=== PATIENT | male | born 1990 | race Caucasian/White ===

== ENCOUNTER 2017-02-15 14:38 | Emergency (ER) | payer OTHER ==
--- NOTE | 2017-02-15 14:44 | ED.PDOC ---
History of Present Illness - General Chief Complaint: Lower Extremity Injury Stated Complaint: left ankle pain Time Seen by Provider: 02/15/17 14:43 Source: patient Exam Limitations: no limitations - History of Present Illness Initial Comments: Parminder Ashby 26 y/o male stated he slipped and fell on a hole this early am twisting left ankle hearing a pop.Had sharp pain on weight bearing left foot after incident.No other related injuries Occurred: this morning Pain - Lower Extremity: moderate: Left Ankle Method of Injury: fell - on a hole, twisted Improving Factors: nothing, rest Worsening Factors: movement Allergies/Adverse Reactions: Allergies NO KNOWN ALLERGY Allergy (Verified 02/15/17 14:57) Home Medications: Ambulatory Orders Naproxen [Naprosyn] 500 mg PO BID #20 tab 02/15/17 Trolamine Salicylate [Aspercreme] 10 % EX TID #1 lot 02/15/17 Review of Systems - Review of Systems Constitutional: States: no symptoms reported EENTM: States: no symptoms reported Respiratory: States: no symptoms reported Cardiology: States: no symptoms reported Gastrointestinal/Abdominal: States: no symptoms reported Genitourinary: States: no symptoms reported Musculoskeletal: States: see HPI Skin: States: no symptoms reported Neurological: States: no symptoms reported Past Medical History (General) - Patient Medical History Hx Seizures: No Hx Stroke: No Hx Dementia: No Hx Asthma: No Hx of COPD: No Hx Cardiac Disorders: No Hx Congestive Heart Failure: No Hx Pacemaker: No Hx Hypertension: No Hx Thyroid Disease: No Hx Diabetes: No Hx Gastroesophageal Reflux: No Hx Renal Disease: No Hx of HIV: No Surgical History: no surgical history - Vaccination History Hx Influenza Vaccination: Yes - Social History Hx Tobacco Use: Yes Hx Alcohol Use: No Hx Substance Use: No Family Medical History - Family History Father Family History: Unknown Living Status: Unknown Physical Exam - Physical Exam General Appearance: Alert, Comfortable, No apparent distress Eyes, Ears, Nose, Throat: PERRL/EOMI, normal ENT inspection Neck: non-tender, full range of motion, supple Cardiovascular/Respiratory: regular rate, rhythm, no M/R/G, normal peripheral pulses, no JVD Gastrointestinal/Abdominal: non-tender, no organomegaly Back: normal inspection, no CVA tenderness, no vertebral tenderness Thigh/Hip: normal inspection, non-tender Leg: normal inspection, non-tender Knee: normal inspection, non-tender Ankle: bone tenderness - left ankle, limited ROM - left ankle pain /swelling, pain - left ankle, soft tissue tenderness - left ankle, swelling - left ankle Foot: normal inspection, non-tender Neuro/Tendon: normal sensation, normal motor functions Mental Status: alert, oriented x 3 Skin: normal color, warm/dry Progress - Progress Progress: 02/15/17 15:27 Vital Signs - 8 hr 02/15/17 14:45 Temperature 98.8 F Pulse Rate [ 112 H pulse ox] Respiratory 18 Rate Blood Pressure 137/74 [Left Arm] O2 Sat by Pulse 97 Oximetry - EKG/XRAY/CT XRAY: ankle - left no fracture Departure - Departure Clinical Impression: Sprain of ankle, left Qualifiers: Encounter type: initial encounter Involved ligament of ankle: unspecified ligament Qualified Code(s): S93.402A - Sprain of unspecified ligament of left ankle, initial encounter Time of Disposition: 15:29 Disposition: Discharge to Home or Self Care Condition: Good Instructions: Ankle Sprain, DI for Ankle Sprain Prescriptions: Naproxen [Naprosyn] 500 mg PO BID #20 tab Trolamine Salicylate [Aspercreme] 10 % EX TID #1 lot Home Medications: Ambulatory Orders Naproxen [Naprosyn] 500 mg PO BID #20 tab 02/15/17 Trolamine Salicylate [Aspercreme] 10 % EX TID #1 lot 02/15/17 Additional Instructions: Follow up with primary md 02/17/2017 call for appointment
[2017-02-15 14:58] VITALS: TEMP 98.8; O2SAT 97
[2017-02-15] MEDS ORDERED: KETOROLAC TROMETHAMINE INJ 60 MG/2 ML VIAL IM ONE (15:14)
[2017-02-15] MEDS ORDERED: HYDROcodone 7.5MG/APAP 325MG 1 EA TAB PO ONE (15:14)
--- NOTE | 2017-02-15 15:17 | RAD ---
PROCEDURE: Ankle,Left 3 Views CLINICAL HISTORY: pain INDICATION: Same as above COMPARISON: None . TECHNIQUE: 3.0 Views of the left ankle were done. FINDINGS: There is no evidence of acute fractures or dislocation involving the left ankle. The soft tissues are radiographically unremarkable. There is no evidence of periosteal reactions or suspicious bony lesions. The talar dome and the subtalar joints are unremarkable. The joint spaces are relatively well-maintained. There is no visualization of any radiopaque foreign bodies. IMPRESSION: Negative for acute bony trauma involving the left ankle Place of interpretation: Teler[facility]iology. Electronically signed by: Cale Quinteros MD 02/15/2017 3:16 PM CDT Workstation: [id number]
[2017-02-15 17:44] VITALS: BP 135/51
== END 2017-02-15 17:45 | disposition home or self-care (01) ==
LOC: ER 14:38
DX: S93.402A Sprain of unspecified ligament of left ankle, initial encounter (principal); Z87.891 Personal history of nicotine dependence; W17.2XXA Fall into hole, initial encounter; Y92.9 Unspecified place or not applicable
CPT/HCPCS: 73610; J1885